=== PATIENT | male | born 1960 | race Caucasian/White ===

== ENCOUNTER 2018-08-29 15:07 | Emergency (ER) | payer OTHER ==
[~2018-08-29] VITALS: Ht 185.4 cm; Wt 113.6 kg
[~2018-08-29 15:07] MED LIST: ESCI10TA PO; RISP3 PO
[2018-08-29] MEDS ORDERED: LURA20TA PO (15:34)
[2018-08-29] MEDS ORDERED: RisperiDONE 1 MG TABLET PO ONE (15:45)
[2018-08-29 16:36] VITALS: BP 144/88
== END 2018-08-29 16:39 | disposition home or self-care (01) ==
LOC: EMS 15:09
DX: F20.9 Schizophrenia, unspecified (principal); F12.90 Cannabis use, unspecified, uncomplicated; F17.210 Nicotine dependence, cigarettes, uncomplicated; Z76.0 Encounter for issue of repeat prescription; Z79.899 Other long term (current) drug therapy

== ENCOUNTER 2018-09-01 12:47 | Emergency (ER) | payer OTHER ==
[~2018-09-01] VITALS: Ht 185.4 cm; Wt 115.9 kg
[~2018-09-01 12:47] MED LIST changes: +LURA20TA PO
[2018-09-01] MEDS ORDERED: RisperiDONE 1 MG TABLET PO ONE (15:15)
[2018-09-01 17:20] VITALS: BP 126/71
== END 2018-09-01 17:21 | disposition home or self-care (01) ==
LOC: EMS 12:49
DX: L85.9 Epidermal thickening, unspecified (principal); F12.90 Cannabis use, unspecified, uncomplicated; F17.210 Nicotine dependence, cigarettes, uncomplicated; F20.9 Schizophrenia, unspecified; Z76.0 Encounter for issue of repeat prescription

== ENCOUNTER 2020-07-14 22:28 | Emergency (ER) | payer OTHER ==
[~2020-07-14] VITALS: Ht 185.4 cm; Wt 111.4 kg
[~2020-07-14 22:28] MED LIST changes: +ESCI-8 PO; -ESCI10TA PO; -RISP3 PO; +RISP3TAB35 PO
[2020-07-15] MEDS ORDERED: DOXYCYCLINE HYCLATE 100 MG TABLET PO ONE (00:15)
[2020-07-15 01:29] VITALS: BP 110/67
== END 2020-07-15 02:26 | disposition home or self-care (01) ==
LOC: EMS 22:30
DX: L03.115 Cellulitis of right lower limb (principal); F15.10 Other stimulant abuse, uncomplicated; F20.9 Schizophrenia, unspecified; F17.210 Nicotine dependence, cigarettes, uncomplicated; F12.90 Cannabis use, unspecified, uncomplicated; F19.90 Other psychoactive substance use, unspecified, uncomplicated
CPT/HCPCS: 99284; 73130-TC; 73630-TC; Z7502; Z7610